=== PATIENT | female | born 1955 | race Caucasian/White ===

== ENCOUNTER 2018-05-08 10:19 | Outpatient (CLI) | payer OTHER | END 2018-05-08 10:20 | disposition home or self-care (01) | LOC: BICMAMMO 10:19 | PROVIDERS: ATTEND Internal Medicine | DX: Z12.31 Encounter for screening mammogram for malignant neoplasm of breast (principal) | CPT/HCPCS: 77063; 77067 ==

== ENCOUNTER 2019-05-25 09:53 | Outpatient (CLI) | payer OTHER ==
--- NOTE | 2019-05-25 10:38 | MMO ---
Bilateral MAMMO Bilat Screen [facility]. CLINICAL HISTORY: Patient is 64 years old and is seen for screening. The patient has no family history of breast cancer. The patient has no personal history of cancer. The patient has a history of bilateral Implants in 1996. VIEWS: The views performed were: bilateral craniocaudal with tomosynthesis; bilateral mediolateral oblique with tomosynthesis; and bilateral Implant displaced with tomosynthesis. FILMS COMPARED: The present examination has been compared to prior imaging studies performed at [facility] on 12/15/2007, and at [facility] on 02/02/2016, 02/28/2017 and 05/08/2018. MAMMOGRAM FINDINGS: There are scattered fibroglandular densities. There are no suspicious masses, suspicious calcifications, or new areas of architectural distortion. Normal implants are present. IMPRESSION: THERE IS NO MAMMOGRAPHIC EVIDENCE OF MALIGNANCY. A ROUTINE FOLLOW-UP MAMMOGRAM IN 1 YEAR IS RECOMMENDED. THE RESULTS OF THIS EXAM WERE SENT TO THE PATIENT. ACR BI-RADS Category 1 - Negative MAMMOGRAPHY NOTE: 1. A negative mammogram report should not delay a biopsy if a dominant of clinically suspicious mass is present. 2. Approximately 10% to 15% of breast cancers are not detected by mammography. 3. Adenosis and dense breasts may obscure an underlying neoplasm.
== END 2019-05-25 09:54 | disposition home or self-care (01) ==
LOC: BICMAMMO 09:53
PROVIDERS: ATTEND Family Medicine
DX: Z12.31 Encounter for screening mammogram for malignant neoplasm of breast (principal); Z98.82 Breast implant status
CPT/HCPCS: 77063; 77067

== ENCOUNTER 2021-08-11 09:25 | Outpatient (CLI) | payer MEDICARE | END 2021-08-11 09:26 | disposition home or self-care (01) | LOC: BICMAMMO 09:25 | PROVIDERS: ATTEND Family Medicine | DX: Z12.31 Encounter for screening mammogram for malignant neoplasm of breast (principal); Z98.82 Breast implant status | CPT/HCPCS: 77063; 77067 ==

== ENCOUNTER 2022-09-05 10:07 | Outpatient (CLI) | payer MEDICARE, OTHER | END 2022-09-05 10:08 | disposition home or self-care (01) | LOC: BICMAMMO 10:07 | PROVIDERS: ATTEND Family Medicine | DX: Z12.31 Encounter for screening mammogram for malignant neoplasm of breast (principal); Z98.82 Breast implant status | CPT/HCPCS: 77063; 77067 ==

== ENCOUNTER 2023-11-18 10:13 | Outpatient (CLI) | payer MEDICARE, OTHER | END 2023-11-18 10:14 | disposition home or self-care (01) | LOC: BICMAMMO 10:13 | PROVIDERS: ATTEND Family Medicine | DX: Z12.31 Encounter for screening mammogram for malignant neoplasm of breast (principal); Z98.82 Breast implant status | CPT/HCPCS: 77063; 77067 ==